=== PATIENT | female | born 1985 | race Two or more races ===

== ENCOUNTER 2017-10-07 07:11 | Outpatient (CLI) | payer OTHER ==
[~2017-10-07 07:11] MED LIST: AMOX1TAB12 PO; BACTROBAN OINT22 GM TP; KETO10TA2 PO
== END 2017-10-07 07:24 | disposition home or self-care (01) ==
LOC: SONOGRAMA 07:11 → MAMO-SONO 07:45
DX: R10.13 Epigastric pain (principal)

== ENCOUNTER 2018-12-27 18:42 | Emergency (ER) | payer OTHER ==
[~2018-12-27] VITALS: Ht 149.9 cm; Wt 62.1 kg
[2018-12-27] MEDS ORDERED: PAXIL20 MG PO (19:02)
[2018-12-27] MEDS ORDERED: CLONAZEPAM1 MG PO (19:02)
== END 2018-12-27 21:37 | disposition home or self-care (01) ==
LOC: ER 18:42
DX: J32.8 Other chronic sinusitis (principal); D64.9 Anemia, unspecified

== ENCOUNTER 2019-03-20 17:57 | Emergency (ER) | payer OTHER ==
[~2019-03-20] VITALS: Ht 149.9 cm; Wt 60.3 kg
[~2019-03-20 17:57] MED LIST changes: +CLONAZEPAM1 MG PO; +PAXIL20 MG PO
[2019-03-20] MEDS ORDERED: RISPERDAL3 MG (18:20)
[2019-03-20] MEDS ORDERED: FOLIC ACID1 MG (18:20)
== END 2019-03-20 21:48 | disposition home or self-care (01) ==
LOC: ER 17:57
DX: S00.83XA Contusion of other part of head, initial encounter (principal); S20.221A Contusion of right back wall of thorax, initial encounter; W18.39XA Other fall on same level, initial encounter; Y93.89 Activity, other specified; Y92.098 Other place in other non-institutional residence as the place of occurrence of the external cause; Y99.8 Other external cause status